=== PATIENT | male | born 1975 | race African-American/Black ===

== ENCOUNTER 2020-03-14 16:02 | Emergency (ER) | payer BC, OTHER ==
[2020-03-14 16:13] VITALS: BP 137/94; PULSE 81; TEMP 98.3; BMI 23.0
[2020-03-14] MEDS ORDERED: SODIUM CHLORIDE 0.9% 500 ML INFUS.BAG IV ONE (16:29)
[2020-03-14] MEDS ORDERED: PANTOPRAZOLE SODIUM 40 MG VIAL IVPUSH ONE (16:29)
[2020-03-14] MEDS ORDERED: ONDANSETRON 4 MG/2 ML VIAL IVPUSH ONE (16:29)
--- NOTE | 2020-03-14 17:07 | PDOC ---
History of Present Illness - General Chief Complaint: Pain Stated Complaint: ABD PAIN Time Seen by Provider: 03/14/20 16:04 History Source: Patient Exam Limitations: No Limitations - History of Present Illness Initial Comments: 03/14/20 17:04 44 year old male pmhx of HLD and iileus requiring surgery (2010) presenting to the ED complaining of nausea vomiting and diarrhea. pt states that he had a BBQ yesterday where he ate and drank heavily. Pt woke up this morning and became nauseous vomiting 5 times NBNB and had two episodes of NB diarrhea. Pt is currently complaining of nausea in the ED as well as being tired which he attributes to drinking yesterday. Pt states he also has abdominal pain specifically in the epigastrium and RUQ, non radiating described as cramping. pt states he has had similar symptoms in the past after eating sheelfish as well as drinking ETOH. Pt otherwise denies: fevers, chills, syncope, lightheadedness, dizziness, headaches, chest pain, shortness of breath, palpitations, back pain. Past History - Medical History Allergies/Adverse Reactions: Allergies Allergy/AdvReac Type Severity Reaction Status Date / Time shellfish derived Allergy Verified 03/14/20 16:12 Home Medications: Ambulatory Orders Atorvastatin Ca [Lipitor] 20 mg PO HS #30 tablet 02/24/20 Divalproex Sodium [Depakote] 500 mg PO HS 30 Days #60 tablet. 02/24/20 Famotidine [Pepcid] 40 mg PO DAILY 7 Days #10 tablet 03/14/20 Ondansetron HCl [Zofran] 4 mg PO PRN PRN 5 Days #10 tablet 03/14/20 COPD: No GI Disorders: Yes (intussusception) Hypercholesterolemia: Yes - Surgical History Abdominal Surgery: Yes (resection) - Psycho-Social/Smoking History Smoking History: Never smoked Have you smoked in the past 12 months: No If you are a former smoker, when did you quit?: 8YRS Review of Systems - Review of Systems Constitutional: No: Chills, Fever HEENTM: No: Blurred Vision Respiratory: No: Shortness of Breath Cardiac (ROS): No: Chest Pain ABD/GI: Yes: Abdominal Distended (with pain), Diarrhea, Nausea, Vomiting : No: Burning, Dysuria Musculoskeletal: No: Back Pain Integumentary: No: Change in Color, Rash Neurological: No: Headache, Numbness, Paresthesia, Tingling *Physical Exam - Vital Signs Last Vital Signs Temp Pulse Resp BP Pulse Ox 98.3 F 81 18 137/94 100 03/14/20 16:08 03/14/20 16:08 03/14/20 16:08 03/14/20 16:08 03/14/20 16:08 - Physical Exam 03/14/20 17:08 Gen: AAOx 3, no acute distress, comfortable, no signs of respiratory distress HENT: atraumatic, normocephalic with no laceration or contusion. Nasal mucosa without erythema. Oropharynx without erythema or exudates. Mucous membranes moist. EYES: PERRL, EOM intact, conjunctiva pink NECK: supple; trachea midline; no JVD, no lymphadenopathy, or thyromegaly CV: RRR no murmurs, gallops, or rubs. CHEST: CTA b/l no wheezing, rales or rhonchi ABD: +BS/ND. surgical scar over umbilicus mildly TTP in epigastrium and RUQ without murphys sign; rest of abdomen soft, no rebound, no guarding EXTREMITY: no cyanosis or erythema. 2+ dorsalis pedis, posterior tibial, and radial pulse. No pedal edema; no calf swelling or tenderness SKIN: no rash, warm and dry, no diaphoresis HEME: no purpura or ecchymosis NEURO: normal speech, CN II-XII intact, sensation intact, normal gait, no cerebellar deficits MS: 5/5 strength in all extremities, FROM intact in all extremities. ED Treatment Course - LABORATORY CBC & Chemistry Diagram: 03/14/20 17:30 03/14/20 17:30 - RADIOLOGY Radiology Studies Ordered: Category Date Time Status ABDOMEN US -LIMITED [US] Stat Ultrasound 03/14/20 16:30 Ordered Medical Decision Making - Medical Decision Making This is a 44-year-old male history of abdominal surgery secondary to ileus presenting with nausea vomiting diarrhea since this morning. Vital signs stable Plan: CBC CMP lipase to assess for infection electrolyte abnormalities liver function and pancreatitis. will administer Protonix and Zofran and normal saline for symptomatic relief will obtain abdominal ultrasound to assess for biliary etiologies. Will reassess based on results US WNL Labs show a luekocytosis to 11.9 most likely reactive to vomiting. Pt reports felling much better with meds and IVF. Repeat abdominal exam benign, no ttp Tolerating PO fluids in ED. Pt appears well and is safe and stable for discharge. Strict return precautions given and need to follow up with PCP expressed. Script for Zofran and Pepcid sent to pts pharmacy. Supportive care instructions explained and given to pt. Reasons to return emergently to ER explained and given. Importance of follow up with PMD and other specialists as indicated stressed to pt. Pt verbalized understanding of instructions. Pt to follow up with PMD in 2 days. 03/14/20 18:57 Discharge - Discharge Information Problems reviewed: Yes Clinical Impression/Diagnosis: Abdominal pain Qualifiers: Abdominal location: unspecified location Qualified Code(s): R10.9 - Unspecified abdominal pain Condition: Improved Disposition: HOME - Admission No - Additional Discharge Information Prescriptions: Famotidine [Pepcid] 40 mg PO DAILY 7 Days #10 tablet Ondansetron HCl [Zofran] 4 mg PO PRN PRN 5 Days #10 tablet PRN Reason: Nausea - Follow up/Referral - Patient Discharge Instructions Patient Printed Discharge Instructions: DI for Alcoholic Gastritis Additional Instructions: Return to the ED if abdominal pain returns or you cannot tolerate fluids. - Post Discharge Activity Work/Back to School Note: Back to Work
--- NOTE | 2020-03-14 17:09 | PDOC ---
Rapid Medical Evaluation Time Seen by Provider: 03/14/20 16:04 Medical Evaluation: Allergies Allergy/AdvReac Type Severity Reaction Status Date / Time shellfish derived Allergy Verified 02/22/20 10:42 03/14/20 16:04 I have performed a brief in-person evaluation of this patient. The patient presents with a chief complaint of:diffuse abd discomfort w/ nausea and weakness that pt awoke with this am. No change in BM, f/c. Pt went to [facility] late last night and states he ate burgers at 12 midnight and drank a lot more than usual. Denies drug use. No abd surg in past. Denies any pmhx Pertinent physical exam findings:mostly somnolent at triage, stable I have ordered the following:labs The patient will proceed to the ED for further evaluation. 03/14/20 17:21 Discharge Disposition - Diagnosis Abdominal pain Qualifiers: Abdominal location: unspecified location Qualified Code(s): R10.9 - Unspecified abdominal pain - Referrals - Patient Instructions - Post Discharge Activity
[2020-03-14 17:51] LABS: BASO % 0.4 % (0-2.0); HEMATOCRIT 45.8 % (35.4-49); HEMOGLOBIN 14.6 GM/dL (11.7-16.9); LYMPH % 5.3 % (8-40); MCH 27.5 pg (25.7-33.7); MCHC 31.9 g/dl (32.0-35.9); MEAN CELL VOLUME 86.3 fl (80-96); MEAN PLT VOLUME 10.1 fl (7.5-11.1); MONO % 1.7 % (3.8-10.2); NEUT % 92.6 % (42.8-82.8); PLATELET COUNT 195 K/MM3 (134-434); RBC 5.31 M/mm3 (4.00-5.60); RDW 14.1 % (11.9-15.9); WHITE BLOOD COUNT 11.9 K/mm3 (4.0-10.0)
[2020-03-14 18:09] LABS: PLATELET ESTIMATE ADEQUATE
[2020-03-14 18:19] LABS: ALBUMIN 4.4 g/dl (3.4-5.0); BILIRUBIN,TOTAL 0.8 mg/dL (0.2-1); BLOOD UREA NITROGEN 11.9 mg/dL (7-18); CALCIUM 9.3 mg/dL (8.5-10.1); CREATININE 0.7 mg/dL (0.55-1.3); POTASSIUM 4.2 mmol/L (3.5-5.1); TOT PROT 7.4 g/dl (6.4-8.2)
== END 2020-03-14 19:00 | disposition home or self-care (01) ==
LOC: JER 16:02
PROC: 3E033GC Introduction of Other Therapeutic Substance into Peripheral Vein, Percutaneous Approach (ICD-10-PCS; principal; 2020-03-14)
DX: R10.11 Right upper quadrant pain (principal)
CPT/HCPCS: 36415; 76705-TC; 80053; 83690; 85025; 99284-25

== ENCOUNTER 2020-05-14 13:45 | Emergency (ER) | payer BC, OTHER ==
[2020-05-14 13:55] VITALS: PULSE 80; TEMP 98.6; BMI 20.3
[2020-05-14] MEDS ORDERED: ONDANSETRON 4 MG/2 ML VIAL IVPUSH ONE (14:40)
[2020-05-14] MEDS ORDERED: morphine CARPU-JECT 4 MG/1 ML DISP.SYRIN IVPUSH ONE (14:40)
[2020-05-14] MEDS ORDERED: SODIUM CHLORIDE 1,000 ML IV STA (14:40)
[2020-05-14] MEDS ORDERED: morphine SULFATE 4 MG/ML VIAL ONE (15:00)
--- NOTE | 2020-05-14 15:15 | PDOC ---
History of Present Illness - General Chief Complaint: Pain Stated Complaint: ABD PAIN Time Seen by Provider: 05/14/20 14:11 History Source: Patient Exam Limitations: No Limitations - History of Present Illness Travel History: No Initial Comments: 05/14/20 15:22 HISTORY OF PRESENT ILLNESS: 45-year-old male past medical history of intussusception status post colectomy 2012 presents emergency department for evaluation of diffuse abdominal pain and concern for "colon cancer or something." Patient reports pain is throughout his abdomen which he rates a 7/10 and is unable to identify any aggravating or alleviating factors. Patient reports he has had decreased appetite. He denies diarrhea, rectal bleeding, dysuria, hematuria, penile discharge or testicular pain. No recent travel or sick contacts. PAST MEDICAL HISTORY: Intussusception status post colectomy SURGICAL HISTORY: Denies ALLERGIES: No known drug allergies; shellfish REVIEW OF SYSTEMS General/Constitutional: Denies fever or chills. Denies weakness, weight change. HEENT: Denies change in vision. Denies ear pain or discharge. Denies sore throat. Cardiovascular: Denies chest pain or shortness of breath. Respiratory: Denies cough, wheezing, or hemoptysis. Gastrointestinal: See HPI Genitourinary: Denies dysuria, frequency, or change in urination. Musculoskeletal: Denies joint or muscle swelling or pain. Denies neck or back pain. Skin and breasts: Denies rash or easy bruising. Neurologic: Denies headache, vertigo, loss of consciousness, or loss of sensation. Psychiatric: Denies depression or anxiety. Endocrine: Denies increased thirst. Denies abnormal weight change. Hematologic/Lymphatic: Denies anemia, easy bleeding, or history of blood clots. Allergic/Immunologic: Denies hives or skin allergy. Denies latex allergy. PHYSICAL EXAM General Appearance: Well-appearing, appropriately dressed. No apparent distress, no intoxication. Respiratory/Chest: Lungs CTAB. No shortness of breath, chest tenderness, respiratory distress, accessory muscle use. No crackles, rales, rhonchi, stridor, wheezing, dullness Cardiovascular: RRR. S1, S2. No JVD, murmur, bradycardia, tachycardia. Gastrointestinal/Abdominal: Normal bowel sounds. Abdomen soft, non-distended. No tenderness or rebound tenderness. No organomegaly, pulsatile mass, guarding, hernia, hepatomegaly, splenomegaly. Midline scar from previous abdominal surgeries noted. Musculoskeletal/Extremities: Normal inspection. FROM of all extremities, normal capillary refill. Pelvis Stable. No CVA tenderness. No tenderness to extremities, pedal edema, swelling, erythema or deformity. Integumentary: Abdominal scar from previous surgeries noted. Otherwise unremarkable. Past History - Medical History Allergies/Adverse Reactions: Allergies Allergy/AdvReac Type Severity Reaction Status Date / Time shellfish derived Allergy Verified 03/14/20 16:12 Home Medications: Ambulatory Orders Atorvastatin Ca [Lipitor] 20 mg PO HS #30 tablet 02/24/20 Divalproex Sodium [Depakote] 500 mg PO HS 30 Days #60 tablet. 02/24/20 Famotidine [Pepcid] 40 mg PO DAILY 7 Days #10 tablet 03/14/20 COPD: No GI Disorders: Yes (intussusception) Hypercholesterolemia: Yes - Surgical History Abdominal Surgery: Yes (resection) - Psycho-Social/Smoking History Smoking History: Never smoked Have you smoked in the past 12 months: No If you are a former smoker, when did you quit?: 8YRS - Substance Abuse Hx (Audit-C & DAST Scrn) How often the patient has a drink containing alcohol: Never Score: In Men: 4 or > Positive; In Women: 3 or > Positive: 0 Screen Result (Pos requires Nsg. Audit-10AR): Negative In the last yr the pt used illegal drug/Rx for NonMed reason: No Score: Yes response is considered Positive: 0 Screen Result (Positive result requires Nsg. DAST-10): Negative *Physical Exam - Vital Signs Last Vital Signs Temp Pulse Resp BP Pulse Ox 98.6 F 80 18 130/102 H 100 05/14/20 13:53 05/14/20 13:53 05/14/20 13:53 05/14/20 13:53 05/14/20 13:53 ED Treatment Course - LABORATORY CBC & Chemistry Diagram: 05/14/20 15:10 05/14/20 15:10 - RADIOLOGY Radiology Studies Ordered: Category Date Time Status ABDOMEN & PELVIS CT WITH CONTR [CT] Stat CT Scan 05/14/20 14:41 Ordered Medical Decision Making - Medical Decision Making 05/14/20 15:26 A/P: 45-year-old male with diffuse abdominal pain, nausea and vomiting worsening over 1 month Abdominal exam is unremarkable with the exception of scar to the midline abdomen from previous abdominal surgeries Patient was concerned he may have cannabis induced vomiting but has not had any cannabis ingestion over the past [address] abdomen and pelvis with IV/p.o. contrast Zofran 4 mg IV push Morphine 4 mg IV push Normal saline 1 L IV bolus Reassess 05/14/20 20:34 CT scan is read by imaging on-call: No evidence of small bowel obstruction or mass. Normal appendix is identified. 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 Lumbar spondylosis at L5-L4 with discogenic disease, endplate degenerative changes and hypertrophic changes of the facet j oints results in severe left-sided neuroforaminal stenosis. No significant right neuroforaminal or spinal canal stenosis. Patient is pending urine studies for disposition. 05/14/20 21:48 Laboratory Tests 05/14/20 05/14/20 05/14/20 15:10 15:10 20:40 WBC 18.5 H RBC 5.59 Hgb 15.6 Hct 47.8 MCV 85.5 MCH 28.0 MCHC 32.7 RDW 14.8 Plt Count 268 D MPV 9.4 Absolute Neuts (auto) 15.8 H Neutrophils % 85.3 H Lymphocytes % 8.3 D Monocytes % 6.0 D Eosinophils % 0.0 Basophils % 0.4 Nucleated RBC % 0 Sodium 139 Potassium 4.1 Chloride 102 Carbon Dioxide 26 Anion Gap 10 BUN 17.5 Creatinine 1.1 Est GFR (CKD-EPI)AfAm 94.13 Est GFR (CKD-EPI)NonAf 81.21 Random Glucose 107 H Calcium 10.4 H Total Bilirubin 1.0 AST 16 ALT 23 Alkaline Phosphatase 50 Total Protein 8.6 H Albumin 5.1 H Lipase 96 Urine Color Yellow Urine Appearance Clear Urine pH 6.5 Ur Specific [place] 1.093 H Urine Protein 1+ H Urine Glucose (UA) Negative Urine Ketones Trace H Urine Blood Negative Urine Nitrite Negative Urine Bilirubin Negative Urine Urobilinogen 0.2 Ur Leukocyte Esterase Negative Urine WBC (Auto) 6.5 Urine RBC (Auto) 16.4 Urine Casts (Auto) 2.83 U Epithel Cells (Auto) 8.1 Urine Bacteria (Auto) 1.9 Laboratory testing combined with imaging likely with gastroenteritis. Will discharge the patient home to follow-up with his primary doctor for continued evaluation of his symptoms. I discussed the physical exam findings, ancillary test results and final diagnoses with the patient. I answered all of the patient's questions. The patient was satisfied with the care received and felt comfortable with the discharge plan and treatment plan. The patient will call their primary care physician within 24 hours to arrange follow-up and will return to the Emergency Department with any new, persistent or worsening symptoms. Portions of this note have been documented using voice recognition software. As a result, errors may occur in the pen and pencil repairer process. Effort has been made to correct all grammatical and pen and pencil repairer error, but some may have been missed which may produce sporadic inaccurate pen and pencil repairer or nonsensical phrases. Discharge - Discharge Information Problems reviewed: Yes Clinical Impression/Diagnosis: Abdominal pain in male Condition: Fair Disposition: HOME - Admission No - Follow up/Referral - Patient Discharge Instructions Additional Instructions: Rest, drink lots of fluids: Teas, water, soups Stella liv, carbonated beverages for the bubbles May try peppermint teas Avoid heavy , spicy or fatty foods until symptoms have resolved Avoid contact with others until fevers and symptoms resolved Lots of handwashing and good hygiene Continue [id number] medications for symptomatic relief Tylenol or Motrin for fever and pain Followup with private physician in one to 2 days as needed Return to emergency department for worsened symptoms, fevers, dehydration - Post Discharge Activity
[2020-05-14 15:46] LABS: BASO % 0.4 % (0-2.0); HEMATOCRIT 47.8 % (35.4-49); HEMOGLOBIN 15.6 GM/dL (11.7-16.9); LYMPH % 8.3 % (8-40); MCHC 32.7 g/dl (32.0-35.9); MEAN CELL VOLUME 85.5 fl (80-96); MEAN PLT VOLUME 9.4 fl (7.5-11.1); NEUT % 85.3 % (42.8-82.8); PLATELET COUNT 268 K/MM3 (134-434); RBC 5.59 M/mm3 (4.00-5.60); RDW 14.8 % (11.9-15.9); WHITE BLOOD COUNT 18.5 K/mm3 (4.0-10.0)
[2020-05-14 16:01] LABS: ALBUMIN 5.1 g/dl (3.4-5.0); BLOOD UREA NITROGEN 17.5 mg/dL (7-18); CALCIUM 10.4 mg/dL (8.5-10.1); CREATININE 1.1 mg/dL (0.55-1.3); POTASSIUM 4.1 mmol/L (3.5-5.1); TOT PROT 8.6 g/dl (6.4-8.2)
[2020-05-14 21:45] LABS: PH,URINE 6.5 (5.0-8.0); URINE APPEARANCE CLEAR; URINE BILIRUBIN NEGATIVE (NEGATIVE); URINE COLOR YELLOW; URINE GLUCOSE (UA) NEGATIVE (NEGATIVE); URINE KETONE TRACE (NEGATIVE)
[2020-05-14 21:46] LABS: EPI CELLS 8.1 /uL (0-25.1); HYALINE CASTS 2.83 /uL (0-3.1); URINE BACTERIA 1.9 /uL (0-1359); URINE LEUK ESTERASE NEGATIVE (NEGATIVE); URINE NITRITE NEGATIVE (NEGATIVE); URINE PROTEIN 1+ (NEGATIVE); URINE RBC 16.4 /uL (0-23.9); URINE UROBILINOGEN 0.2 mg/dL (0.2-1.0); URINE WBC 6.5 /uL (0-25.8)
[2020-05-14 22:17] VITALS: BP 142/86
== END 2020-05-14 22:18 | disposition home or self-care (01) ==
LOC: JER 13:45
PROC: 3E033NZ Introduction of Analgesics, Hypnotics, Sedatives into Peripheral Vein, Percutaneous Approach (ICD-10-PCS; principal; 2020-05-14)
PROC: 3E033GC Introduction of Other Therapeutic Substance into Peripheral Vein, Percutaneous Approach (ICD-10-PCS; 2020-05-14)
PROC: 3E0337Z Introduction of Electrolytic and Water Balance Substance into Peripheral Vein, Percutaneous Approach (ICD-10-PCS; 2020-05-14)
DX: R10.9 Unspecified abdominal pain (principal)
CPT/HCPCS: 36415; 74177-TC; 80053; 81003; 83690; 85025; 99285-25; Q9967

== ENCOUNTER 2020-05-19 22:46 | Emergency (ER) | payer OTHER ==
[2020-05-19 22:57] VITALS: BMI 20.3
[2020-05-19] MEDS ORDERED: ACETAMINOPHEN 1000 MG/100 ML VIAL (NON FORMULARY) IVPB ONE (23:38)
[2020-05-19] MEDS ORDERED: LACTATED RINGERS SOLUTION 1000 ML INFUS.BAG IV ONE (23:40)
[2020-05-19] MEDS ORDERED: ACETAMINOPHEN INJECTION 100 ML IVPB ONE (23:58)
[2020-05-20] MEDS ORDERED: MAGNESIUM SULF 50% (8.12 MEQ/2 ML-1 GM VIAL) IVPB ONE (00:27)
[2020-05-20] MEDS ORDERED: METOCLOPRAMIDE HCL INJECTION 10 MG/2 ML VIAL IVPB ONE (00:27)
--- NOTE | 2020-05-20 00:38 | PDOC ---
History of Present Illness - General Chief Complaint: Nausea/Vomiting Stated Complaint: NAUSEA/VOMITING Time Seen by Provider: 05/19/20 23:04 - History of Present Illness Initial Comments: HPI 45 yo M PMH of intussusception s/p ex lap + bowel resection (2010) and HLD presenting with mild to moderate generalized abdominal pain x 1-2 weeks - pain is intermittent with increasingly frequent episodes; described as cramping and feeling "bloated discomfort - like gas is stuck in my stomach." Worse with PO intake; improved with no PO intake and hot baths. Reports associated nausea and nb nb emesis (nearly every time he attempts to eat or drink something), decreased appetite, lightheadedness, and generalized weakness over the past week. Pt is passing flatus but has not had a BM in a week (reports no sensation or urge to move his bowels; feels like there is nothing to defecate as he has not been able to tolerate anything by mouth for the last week). Of note, pt has had similar episodes of these symptoms over the last 3 months that seem to last several days and resolve before occurring again with days to weeks. Pt reports l osing approximately 40 pounds because of his symptoms. Denies fevers, chills, diarrhea, urinary changes, groin pain, cough, SOB, sick contacts, recent travel, changes in sensation/strength. Pt was here on 05/[address] A/P with contrast was done - imaging police officer crime prevention read did not show significant findings and pt was discharged home. Read by radiologists the next morning yielded dilated distal portion of duodenum + proximal jejunal loop w/o gross wall thickening; possible ileus, cannot r/o enteritis. PMHX: as in HPI PSHX: as in HPI Meds: Ambulatory Orders Atorvastatin Ca [Lipitor] 20 mg PO HS #30 tablet 02/24/20 Divalproex Sodium [Depakote] 500 mg PO HS 30 Days #60 tablet. 02/24/20 Famotidine [Pepcid] 40 mg PO DAILY 7 Days #10 tablet 03/14/20 - pt reports he is no longer taking depakote at home as it gave him insomnia and made him "hyper" Allergies: as per chart Tob: denies Etoh: denies Rec drugs: hx of marijuana use but has not used in the last several weeks in an attempt to stop the nausea/vomiting PCP: none ROS GENERAL/CONSTITUTIONAL: No fever or chills. + generalized weakness + lightheaded + decreased appetite HEAD, EYES, EARS, NOSE AND THROAT: No change in vision. No ear pain or discharge. No sore throat. CARDIOVASCULAR: No chest pain or shortness of breath RESPIRATORY: No cough, wheezing, or hemoptysis. GASTROINTESTINAL: No diarrhea or constipation. + nausea +nb nb emesis + generalized abdominal pain GENITOURINARY: No dysuria, frequency, or change in urination. MUSCULOSKELETAL: No joint or muscle swelling or pain. No neck or back pain. SKIN: No rash NEUROLOGIC: No headache, vertigo, loss of consciousness, or change in strength/sensation. ENDOCRINE: No increased thirst. No abnormal weight change HEMATOLOGIC/LYMPHATIC: No anemia, easy bleeding, or history of blood clots. ALLERGIC/IMMUNOLOGIC: No hives or skin allergy. PE GENERAL: Awake, alert, and fully oriented, in no acute distress HEAD: No signs of trauma, normocephalic, atraumatic EYES: PERRLA, EOMI, sclera anicteric, conjunctiva clear ENT: Auricles normal inspection, hearing grossly normal, nares patent, oropharynx clear without exudates. Dry mucosa NECK: Normal ROM, supple, no lymphadenopathy LUNGS: No distress, speaks full sentences, clear to auscultation bilaterally HEART: Regular rate and rhythm, normal S1 and S2, no murmurs, rubs or gallops, peripheral pulses normal and equal bilaterally. ABDOMEN: Soft, non distended, diffusely tender with no rebound or guarding, normoactive bowel sounds. EXTREMITIES : Normal inspection, Normal range of motion, no edema. No clubbing or cyanosis. NEUROLOGICAL: Cranial nerves II through XII grossly intact. Normal speech, no focal sensorimotor deficits SKIN: Warm, Dry, normal turgor, no rashes or lesions noted Past History - Medical History Allergies/Adverse Reactions: Allergies Allergy/AdvReac Type Severity Reaction Status Date / Time shellfish derived Allergy Verified 03/14/20 16:12 Home Medications: Ambulatory Orders Atorvastatin Ca [Lipitor] 20 mg PO HS #30 tablet 02/24/20 Docusate Sodium [Docusate 100 mg] 100 mg PO BID #30 cap 05/20/20 Pyridoxine HCl (B-6) [Vitamin B6] 25 mg PO TID PRN 14 Days #30 tablet 05/20/20 Trimethobenzamide HCl [Tigan] 300 mg PO TID PRN 14 Days #30 capsule 05/20/20 COPD: No GI Disorders: Yes (intussusception) Hypercholesterolemia: Yes - Surgical History Abdominal Surgery: Yes (resection) - Psycho-Social/Smoking History Smoking History: Former smoker Have you smoked in the past 12 months: No If you are a former smoker, when did you quit?: 8YRS Information on smoking cessation initiated: No - Substance Abuse Hx (Audit-C & DAST Scrn) How often the patient has a drink containing alcohol: Never Score: In Men: 4 or > Positive; In Women: 3 or > Positive: 0 Screen Result (Pos requires Nsg. Audit-10AR): Negative *Physical Exam - Vital Signs Last Vital Signs Temp Pulse Resp BP Pulse Ox 97.5 F L 116 H 20 120/100 98 05/19/20 22:54 05/19/20 22:54 05/19/20 22:54 05/19/20 22:54 05/19/20 22:54 ED Treatment Course - LABORATORY CBC & Chemistry Diagram: 05/20/20 00:15 05/20/20 00:15 - Medications Given in the ED: ED Medications Discontinued Medications Generic Name Dose Route Start Last Admin Trade Name Garyq PRN Reason Stop Dose Admin Acetaminophen 1,000 mg 05/19/20 23:38 05/20/20 00:23 Ofirmev Injection - IVPB 05/19/20 23:39 1,000 mg ONCE ONE Administration Medical Decision Making - Medical Decision Making MDM 45 yo M PMH of intussusception s/p ex lap + bowel resection (2010) and HLD presenting with intermittent cramping generalized abdominal pain x 1-2 weeks - pain with associated nausea and nb nb emesis (nearly every time he attempts to eat or drink something), decreased appetite, lightheadedness, and generalized weakness over the past week. DDX including but not limited to: ileus, SBO, gastroenteritis, pancreatitis, volvulus, pancreatitis, appendicitis, bowel ischemia W/U: - CBC, CMP, lactic acid, lipase, Mg - CT ab/pelvis with po and iv contrast to eval for worsening pathology or development of SBO - EKG with NSR 84 bpm, prolonged QTc 602, rightward axis TX: - IV tylenol - IVF hydration with LR - IV reglan for nausea - Mg sulfate 05/20/20 00:58 WBC 11.0 - downtrending from 18.5 on 05/14 Na 133, K 3.3 T Bili 1.6, LFTs nl Mg 2.5 will give KCl will get RUQ US 05/20/20 01:21 RUQ US read as per Imaging secondary connector armature: Gallbladder sludge without secondary findings of cholecystitis. 05/20/20 02:55 CT Ab/Pel read as per Imaging secondary connector armature: No evidence of acute pathology 05/20/20 03:17 Pt offered enema for constipation; refused enema in the ER. Will get repeat EKG. Plan to discharge with GI and cardiology follow up if tolerating PO. 05/20/20 03:52 Repeat EKG with QTc interval for 460. Pt tolerating PO now. Will plan to discharge with GI and cardiology follow up. 05/20/20 06:20 Patient stable for discharge. Informed of all lab and imaging results. Given follow up instructions and strict return precautions. Patient expressed understanding and agree to plan. 05/20/20 06:39 Discharge - Discharge Information Problems reviewed: Yes Clinical Impression/Diagnosis: Prolonged QT interval, Abdominal pain, Vomiting, Constipation Condition: Improved Disposition: HOME - Admission No - Additional Discharge Information Prescriptions: Docusate Sodium [Docusate 100 mg] 100 mg PO BID #30 cap Trimethobenzamide HCl [Tigan] 300 mg PO TID PRN 14 Days #30 capsule PRN Reason: Nausea Pyridoxine HCl (B-6) [Vitamin B6] 25 mg PO TID PRN 14 Days #30 tablet PRN Reason: Nausea - Follow up/Referral Referrals: [facility] [place] [facility] [place] [Provider Group] Joni Pulido MD [Staff Physician] - Esteban Dubon DO [Staff Physician] - Jacob Jones MD [Staff Physician] - Morgan Figueroa MD [Staff Physician] - Netta Mcdermott DO [Staff Physician] - Adam Leonardo MD [Staff Physician] - Korey Bella MD [Staff Physician] - Davonte Chavez MD [Staff Physician] - - Patient Discharge Instructions Patient Printed Discharge Instructions: DI for Nausea -- Adult, DI for Vomiting -- Adult Additional Instructions: You were seen in the ED for complaints of generalized abdominal pain with nausea and vomiting as well as constipation/ In the ED you were evaluated with labs, ultrasound of the abdomen, and CT scan of the abdomen with contrast/ Your results were: Sodium level and Potassium level were slightly low. - you were given IV fluids and potassium to replenish these levels Total Bilirubin level was elevated to 1.6 - you should follow up regarding this result with a wood tool maker Ultrasound of the abdomen showed bile sludge but no concern for gallbladder disease. CT scan of the abdomen and pelvis showed no concerning findings. EKG showed a prolong QTc interval. You were treated with IV tylenol, IV reglan (anti-nausea medication), IV fluids, and Potassium Chloride. There does not appear to be an acute need for immediate hospitalization. You are advised to follow up with your Primary Care Physician within 1 week. You were given a referral to several wood tool maker and certified histologic technician. Please follow up with a GI doctor within 1 week and certified histologic technician within 1 week. You were given a prescription for docusate (for constipation, please stop taking if you are having frequent loose stools), vitamin b6 (as needed for nausea) and tigan (as needed for nausea). For your constipation, we recommend you increase your fiber and can drink prune juice as well. Return to the ED immediately if you experience worsening and persistent abdominal pain, worsening vomiting and inability to tolerate anything by mouth, inability to defecate and pass gas, or the development of fevers. - Post Discharge Activity
[2020-05-20 00:39] LABS: BASO % 0.6 % (0-2.0); EOS % 0.2 % (0-4.5); HEMATOCRIT 49.3 % (35.4-49); HEMOGLOBIN 16.8 GM/dL (11.7-16.9); LYMPH % 24.4 % (8-40); MCH 28.6 pg (25.7-33.7); MCHC 34.1 g/dl (32.0-35.9); MEAN CELL VOLUME 83.8 fl (80-96); MEAN PLT VOLUME 9.8 fl (7.5-11.1); MONO % 7.5 % (3.8-10.2); NEUT % 67.3 % (42.8-82.8); PLATELET COUNT 268 K/MM3 (134-434); RBC 5.89 M/mm3 (4.00-5.60); RDW 13.8 % (11.9-15.9)
[2020-05-20 00:51] LABS: INR 1.08 (0.83-1.09); PROTHROMBIN TIME (PATIENT) 12.8 SEC (9.7-13.0)
[2020-05-20 00:54] LABS: ACTIVATED PTT 28.4 SECONDS (25.2-36.5)
[2020-05-20 01:00] LABS: ALBUMIN 4.6 g/dl (3.4-5.0); BILIRUBIN,TOTAL 1.6 mg/dL (0.2-1); BLOOD UREA NITROGEN 13.8 mg/dL (7-18); CALCIUM 9.7 mg/dL (8.5-10.1); MAGNESIUM 2.5 mg/dL (1.8-2.4); POTASSIUM 3.3 mmol/L (3.5-5.1); TOT PROT 7.8 g/dl (6.4-8.2)
[2020-05-20] MEDS ORDERED: POTASSIUM CHLORIDE ORAL LIQUID 20 MEQ/15 ML PO ONE (01:12)
--- NOTE | 2020-05-20 01:17 | PDOC ---
Attending Attestation - Resident Resident Name: Marko Hammond - ED Attending Attestation I have performed the following: I have examined & evaluated the patient, The case was reviewed & discussed with the resident, I agree w/resident's findings & plan, Exceptions are as noted - HPI HPI: 05/20/20 07:19 See resident HPI - Physicial Exam PE: 05/20/20 07:20 Agree with documented exam - Medical Decision Making 05/20/20 07:20 45M p/w n/v constipation for a repeat visit within a week has risk for obstruction, consider appy, judy, pancreatitis, less likely enteritis, colitis f/u labs, will repeat imaging, ekg anti-emetic, ivf dispo per clinical course Discharge - Discharge Information Problems reviewed: Yes Clinical Impression/Diagnosis: Prolonged QT interval, Abdominal pain, Vomiting, Constipation Condition: Improved Disposition: HOME - Additional Discharge Information Prescriptions: Docusate Sodium [Docusate 100 mg] 100 mg PO BID #30 cap Trimethobenzamide HCl [Tigan] 300 mg PO TID PRN 14 Days #30 capsule PRN Reason: Nausea Pyridoxine HCl (B-6) [Vitamin B6] 25 mg PO TID PRN 14 Days #30 tablet PRN Reason: Nausea - Follow up/Referral Referrals: [facility] [place] [facility] [place] [Provider Group] Joni Pulido MD [Staff Physician] - Esteban Dubon DO [Staff Physician] - Jacob Jones MD [Staff Physician] - Morgan Figueroa MD [Staff Physician] - Netta Mcdermott DO [Staff Physician] - Adam Leonardo MD [Staff Physician] - Davonte Chavez MD [Staff Physician] - Korey Bella MD [Staff Physician] - - Patient Discharge Instructions Patient Printed Discharge Instructions: DI for Nausea -- Adult, DI for Vomiting -- Adult Additional Instructions: You were seen in the ED for complaints of generalized abdominal pain with nausea and vomiting as well as constipation/ In the ED you were evaluated with labs, ultrasound of the abdomen, and CT scan of the abdomen with contrast/ Your results were: Sodium level and Potassium level were slightly low. - you were given IV fluids and potassium to replenish these levels Total Bilirubin level was elevated to 1.6 - you should follow up regarding this result with a hygiene assistant Ultrasound of the abdomen showed bile sludge but no concern for gallbladder disease. CT scan of the abdomen and pelvis showed no concerning findings. EKG showed a prolong QTc interval. You were treated with IV tylenol, IV reglan (anti-nausea medication), IV fluids, and Potassium Chloride. There does not appear to be an acute need for immediate hospitalization. You are advised to follow up with your Primary Care Physician within 1 week. You were given a referral to several hygiene assistant and beef cattle specialist. Please follow up with a GI doctor within 1 week and beef cattle specialist within 1 week. You were given a prescription for docusate (for constipation, please stop taking if you are having frequent loose stools), vitamin b6 (as needed for nausea) and tigan (as needed for nausea). For your constipation, we recommend you increase your fiber and can drink prune juice as well. Return to the ED immediately if you experience worsening and persistent abdominal pain, worsening vomiting and inability to tolerate anything by mouth, inability to defecate and pass gas, or the development of fevers. - Post Discharge Activity
[2020-05-20] MEDS ORDERED: METOCLOPRAMIDE HCL INJECTION 10 MG/2 ML VIAL ONE (01:21)
[2020-05-20] MEDS ORDERED: MAGNESIUM SULF 50% (8.12 MEQ/2 ML-1 GM VIAL) ONE (01:21)
[2020-05-20] MEDS ORDERED: POTASSIUM CHLORIDE ORAL LIQUID 20 MEQ/15 ML ONE (01:24)
[2020-05-20] MEDS ORDERED: POTASSIUM CHLORIDE TABS 10 MEQ TABLET.ER (FP) PO ONE (02:23)
[2020-05-20] MEDS ORDERED: POTASSIUM CHLORIDE TABS 20 MEQ TABLET.ER (FP) PO ONE (02:45)
[2020-05-20 06:24] VITALS: BP 122/92; PULSE 67; TEMP 98.1
--- NOTE | 2020-05-20 09:06 | EKG ---
Test Reason : Blood Pressure : / mmHG Vent. Rate : 065 BPM Atrial Rate : 065 BPM P-R Int : 132 ms QRS Dur : 082 ms QT Int : 444 ms P-R-T Axes : 073 090 048 degrees QTc Int : 461 ms NORMAL SINUS RHYTHM POSSIBLE LEFT ATRIAL ENLARGEMENT RIGHTWARD AXIS WHEN COMPARED WITH ECG OF 20-MAY-2020 00:24, NONSPECIFIC T WAVE ABNORMALITY NOW EVIDENT IN INFERIOR LEADS QT HAS SHORTENED Confirmed by MARIALUISA PENA MD ([id number]) on 05/20/2020 9:05:35 AM Referred By: Confirmed By:MARIALUISA PENA MD
--- NOTE | 2020-05-20 09:07 | EKG ---
Test Reason : Blood Pressure : / mmHG Vent. Rate : 084 BPM Atrial Rate : 084 BPM P-R Int : 130 ms QRS Dur : 078 ms QT Int : 510 ms P-R-T Axes : 082 094 074 degrees QTc Int : 602 ms NORMAL SINUS RHYTHM BIATRIAL ENLARGEMENT RIGHTWARD AXIS PULMONARY DISEASE PATTERN NONSPECIFIC ST ABNORMALITY PROLONGED QT ABNORMAL ECG WHEN COMPARED WITH ECG OF 24-FEB-2020 14:50, NONSPECIFIC T WAVE ABNORMALITY NO LONGER EVIDENT IN INFERIOR LEADS QT HAS LENGTHENED Confirmed by MARIALUISA PENA MD ([id number]) on 05/20/2020 9:07:26 AM Referred By: Confirmed By:MARIALUISA PENA MD
== END 2020-05-20 07:10 | disposition home or self-care (01) ==
LOC: JER 22:46
PROC: 3E0333Z Introduction of Anti-inflammatory into Peripheral Vein, Percutaneous Approach (ICD-10-PCS; principal; 2020-05-19)
PROC: 3E033GC Introduction of Other Therapeutic Substance into Peripheral Vein, Percutaneous Approach (ICD-10-PCS; 2020-05-19)
DX: I45.81 Long QT syndrome (principal); R10.9 Unspecified abdominal pain; R11.11 Vomiting without nausea
CPT/HCPCS: 36415; 74177-TC; 76705-TC; 80053; 83605; 83690; 83735; 85025; 85610; 85730; 86850; 86900; 86901; 93005; 93010; 99285-25; J0131

== ENCOUNTER 2021-02-01 12:39 | Emergency (ER) | payer OTHER ==
[2021-02-01 13:13] VITALS: TEMP 98.6; BMI 22.4
[2021-02-01] MEDS ORDERED: morphine CARPU-JECT 4 MG/1 ML DISP.SYRIN IVPUSH ONE (14:01)
[2021-02-01] MEDS ORDERED: SODIUM CHLORIDE 1,000 ML IV STA (14:01)
[2021-02-01] MEDS ORDERED: ONDANSETRON 4 MG/2 ML VIAL IVPUSH ONE ×2 (14:02→17:17)
[2021-02-01] MEDS ORDERED: morphine SULFATE 4 MG/ML VIAL ONE (14:13)
[2021-02-01] MEDS ORDERED: ONDANSETRON 4 MG/2 ML VIAL ONE ×2 (14:13→17:19)
[2021-02-01 14:45] LABS: BASO % 0.7 % (0-2.0); HEMATOCRIT 47.2 % (35.4-49); HEMOGLOBIN 15.6 GM/dL (11.7-16.9); LYMPH % 9.2 % (8-40); MCH 28.4 pg (25.7-33.7); MEAN CELL VOLUME 86.1 fl (80-96); MEAN PLT VOLUME 9.4 fl (7.5-11.1); MONO % 5.6 % (3.8-10.2); NEUT % 84.5 % (42.8-82.8); PLATELET COUNT 274 K/MM3 (134-434); RBC 5.48 M/mm3 (4.00-5.60); RDW 13.6 % (11.9-15.9); WHITE BLOOD COUNT 18.8 K/mm3 (4.0-10.0)
[2021-02-01 15:04] LABS: CALCIUM 9.6 mg/dL (8.5-10.1)
[2021-02-01 15:05] LABS: ALBUMIN 4.9 g/dl (3.4-5.0); BLOOD UREA NITROGEN 14.8 mg/dL (7-18)
[2021-02-01 15:08] LABS: CREATININE 1.1 mg/dL (0.55-1.3); TOT PROT 8.2 g/dl (6.4-8.2)
[2021-02-01 15:11] LABS: BILIRUBIN,TOTAL 2.8 mg/dL (0.2-1)
[2021-02-01] MEDS ORDERED: POTASSIUM CHLORIDE ORAL LIQUID 20 MEQ/15 ML PO ONE (15:21)
[2021-02-01] MEDS ORDERED: POTASSIUM CHLORIDE ORAL LIQUID 20 MEQ/15 ML ONE (15:30)
[2021-02-01] MEDS ORDERED: POTASSIUM CHLORIDE TABS 20 MEQ TABLET.ER (FP) PO ONE ×2 (15:36→15:38)
[2021-02-01] MEDS ORDERED: SODIUM CHLORIDE 500 ML IV STA (17:18)
[2021-02-01] MEDS ORDERED: FAMOTIDINE 20 MG/50 ML IVPB 20 MG/50 ML MG IVPB ONE ×2 (17:25→17:28)
[2021-02-01 18:22] VITALS: BP 151/88; PULSE 62
== END 2021-02-01 18:36 | disposition home or self-care (01) ==
LOC: JER 12:39
PROC: 3E033GC Introduction of Other Therapeutic Substance into Peripheral Vein, Percutaneous Approach (ICD-10-PCS; principal; 2021-02-01)
PROC: 3E033NZ Introduction of Analgesics, Hypnotics, Sedatives into Peripheral Vein, Percutaneous Approach (ICD-10-PCS; 2021-02-01)
PROC: 3E033GC Introduction of Other Therapeutic Substance into Peripheral Vein, Percutaneous Approach (ICD-10-PCS; 2021-02-01)
PROC: 3E033GC Introduction of Other Therapeutic Substance into Peripheral Vein, Percutaneous Approach (ICD-10-PCS; 2021-02-01)
PROC: 3E0337Z Introduction of Electrolytic and Water Balance Substance into Peripheral Vein, Percutaneous Approach (ICD-10-PCS; 2021-02-01)
PROC: 3E0337Z Introduction of Electrolytic and Water Balance Substance into Peripheral Vein, Percutaneous Approach (ICD-10-PCS; 2021-02-01)
DX: R11.2 Nausea with vomiting, unspecified (principal); R10.84 Generalized abdominal pain
CPT/HCPCS: 36415; 74177-TC; 80053; 83690; 85025; 99285-25; Q9967

== ENCOUNTER 2021-02-09 14:14 | Emergency (ER) | payer OTHER ==
[2021-02-09 14:30] VITALS: TEMP 98.2; BMI 21.7
[2021-02-09] MEDS ORDERED: morphine CARPU-JECT 4 MG/1 ML DISP.SYRIN IVPUSH ONE (15:05)
[2021-02-09] MEDS ORDERED: SODIUM CHLORIDE 1,000 ML IV STA (15:05)
[2021-02-09] MEDS ORDERED: ONDANSETRON 4 MG/2 ML VIAL IVPUSH ONE ×2 (15:05→17:29)
[2021-02-09] MEDS ORDERED: morphine SULFATE 4 MG/ML VIAL ONE ×2 (15:28→17:38)
[2021-02-09] MEDS ORDERED: ONDANSETRON 4 MG/2 ML VIAL ONE ×2 (15:28→17:39)
[2021-02-09 16:26] LABS: BASO % 0.3 % (0-2.0); HEMATOCRIT 51.6 % (35.4-49); HEMOGLOBIN 17.6 GM/dL (11.7-16.9); LYMPH % 13.7 % (8-40); MCH 28.6 pg (25.7-33.7); MCHC 34.1 g/dl (32.0-35.9); MEAN CELL VOLUME 83.9 fl (80-96); MEAN PLT VOLUME 9.7 fl (7.5-11.1); MONO % 6.6 % (3.8-10.2); NEUT % 79.4 % (42.8-82.8); PLATELET COUNT 345 K/MM3 (134-434); RBC 6.15 M/mm3 (4.00-5.60); RDW 12.7 % (11.9-15.9); WHITE BLOOD COUNT 11.4 K/mm3 (4.0-10.0)
[2021-02-09 16:34] LABS: PH,URINE 5.5 (5.0-8.0); URINE APPEARANCE CLEAR; URINE BILIRUBIN NEGATIVE (NEGATIVE); URINE COLOR YELLOW; URINE GLUCOSE (UA) NEGATIVE (NEGATIVE); URINE KETONE 1+ (NEGATIVE); URINE LEUK ESTERASE NEGATIVE (NEGATIVE); URINE NITRITE NEGATIVE (NEGATIVE); URINE PROTEIN TRACE (NEGATIVE); URINE UROBILINOGEN 0.2 mg/dL (0.2-1.0)
[2021-02-09 16:43] LABS: CHLORIDE 86 mmol/L (98-107); SODIUM 130 mmol/L (136-145)
[2021-02-09 16:45] LABS: CALCIUM 10.4 mg/dL (8.5-10.1)
[2021-02-09 16:46] LABS: ANION GAP 14 MMOL/L (8-16); BLOOD UREA NITROGEN 16.9 mg/dL (7-18); CO2 30 mmol/L (21-32); GLUCOSE,RANDOM 83 mg/dL (74-106); LIPASE 160 U/L (73-393)
[2021-02-09 16:49] LABS: CREATININE 1.4 mg/dL (0.55-1.3); SGOT/AST 34 U/L (15-37); SGPT/ALT 31 U/L (13-61)
[2021-02-09 16:50] LABS: BILIRUBIN,TOTAL 2.1 mg/dL (0.2-1); TOT PROT 8.3 g/dl (6.4-8.2)
[2021-02-09 16:52] LABS: ALK PHOS 64 U/L (45-117)
[2021-02-09] MEDS ORDERED: POTASSIUM CHLORIDE TABS 20 MEQ TABLET.ER (FP) PO ONE ×2 (16:58→17:17)
[2021-02-09] MEDS: KCL 10 MEQ IVPB 10 MEQ/100 ML INFUS.BAG IVPB SCH ×2 (17:15→18:33)
[2021-02-09] MEDS ORDERED: KCL 10 MEQ IVPB 10 MEQ/100 ML INFUS.BAG IVPB ONE ×2 (17:17→18:32)
[2021-02-09] MEDS ORDERED: morphine CARPU-JECT 10 MG/1 ML DISP.SYRIN IVPUSH ONE (17:29)
[2021-02-09] MEDS ORDERED: MORPHINE SULFATE 2 MG/ML VIAL ONE (17:39)
[2021-02-09] MEDS ORDERED: SODIUM CHLORIDE 0.9%/KCL 20 MEQ/1,000 ML INFUS.BAG IV SCH (18:30)
[2021-02-09 20:51] LABS: CALCIUM 9.1 mg/dL (8.5-10.1)
[2021-02-09 20:53] LABS: BLOOD UREA NITROGEN 15.4 mg/dL (7-18)
[2021-02-09 20:56] LABS: CREATININE 1.3 mg/dL (0.55-1.3)
[2021-02-09 21:26] VITALS: BP 135/89; PULSE 83
== END 2021-02-09 21:25 | disposition home or self-care (01) ==
LOC: JER 14:14
PROC: 3E033NZ Introduction of Analgesics, Hypnotics, Sedatives into Peripheral Vein, Percutaneous Approach (ICD-10-PCS; principal; 2021-02-09)
PROC: 3E033GC Introduction of Other Therapeutic Substance into Peripheral Vein, Percutaneous Approach (ICD-10-PCS; 2021-02-09)
PROC: 3E0337Z Introduction of Electrolytic and Water Balance Substance into Peripheral Vein, Percutaneous Approach (ICD-10-PCS; 2021-02-09)
DX: R10.9 Unspecified abdominal pain (principal); E87.6 Hypokalemia
CPT/HCPCS: 36415; 76705-TC; 80048; 80053; 81003; 82550; 83690; 84484; 85025; 86850; 86900; 86901; 87086; 93005; 93010; 99285-25

== ENCOUNTER 2022-09-05 11:46 | Emergency (ER) | payer OTHER ==
[2022-09-05 12:38] VITALS: BP 128/75; PULSE 77; RESP 18; TEMP 98.7; BMI 23.0
[2022-09-05] MEDS ORDERED: KETOROLAC TROMETHAMINE 30 MG/1 ML VIAL IM ONE (13:43)
[2022-09-05] MEDS ORDERED: KETOROLAC TROMETHAMINE 30 MG/1 ML VIAL ONE (13:48)
== END 2022-09-05 13:52 | disposition home or self-care (01) ==
LOC: JERFT 11:46
PROC: 3E0233Z Introduction of Anti-inflammatory into Muscle, Percutaneous Approach (ICD-10-PCS; principal; 2022-09-05)
DX: M54.12 Radiculopathy, cervical region (principal)
CPT/HCPCS: 99284-25

== ENCOUNTER 2022-11-14 12:11 | Emergency (ER) | payer OTHER ==
[2022-11-14 12:24] VITALS: BP 147/79; PULSE 104; RESP 18; TEMP 98; BMI 23.0
[2022-11-14] MEDS ORDERED: ONDANSETRON 4 MG/2 ML VIAL IVPUSH ONE (13:16)
[2022-11-14] MEDS ORDERED: SODIUM CHLORIDE 0.9% 500 ML INFUS.BAG IV ONE (13:16)
[2022-11-14] MEDS ORDERED: ONDANSETRON 4 MG/2 ML VIAL ONE (13:43)
[2022-11-14 14:29] LABS: BASO % 0.6 % (0-2.0); EOS % 0.2 % (0-4.5); HEMATOCRIT 53.7 % (35.4-49); HEMOGLOBIN 17.6 GM/dL (11.7-16.9); LYMPH % 16.1 % (8-40); MCH 27.2 pg (25.7-33.7); MCHC 32.7 g/dl (32.0-35.9); MEAN CELL VOLUME 83.1 fl (80-96); MEAN PLT VOLUME 9.2 fl (7.5-11.1); MONO % 7.6 % (3.8-10.2); NEUT % 75.5 % (42.8-82.8); PLATELET COUNT 300 10^3/uL (134-434); RBC 6.46 M/mm3 (4.00-5.60); RDW 13.5 % (11.9-15.9); WHITE BLOOD COUNT 15.5 K/mm3 (4.0-10.0)
[2022-11-14 14:50] LABS: ALBUMIN 4.7 g/dl (3.4-5.0); CALCIUM 10.1 mg/dL (8.5-10.1)
[2022-11-14 14:51] LABS: BLOOD UREA NITROGEN 21.2 mg/dL (7-18)
[2022-11-14 14:53] LABS: CREATININE 1.1 mg/dL (0.55-1.3)
[2022-11-14 14:55] LABS: BILIRUBIN,TOTAL 1.9 mg/dL (0.2-1)
[2022-11-14] MEDS ORDERED: POTASSIUM CHLORIDE TABS 20 MEQ TABLET.ER (FP) PO ONE ×2 (14:59→15:15)
[2022-11-14] MEDS ORDERED: POTASSIUM CHLORIDE ORAL LIQUID 20 MEQ/15 ML PO ONE (14:59)
[2022-11-14] MEDS ORDERED: POTASSIUM CHLORIDE ORAL LIQUID 20 MEQ/15 ML ONE (15:15)
== END 2022-11-14 15:49 | disposition home or self-care (01) ==
LOC: JER 12:11
PROC: 3E033GC Introduction of Other Therapeutic Substance into Peripheral Vein, Percutaneous Approach (ICD-10-PCS; principal; 2022-11-14)
DX: R11.2 Nausea with vomiting, unspecified (principal); R19.7 Diarrhea, unspecified
CPT/HCPCS: 36415; 80053; 83690; 85025; 99284-25

== ENCOUNTER 2022-12-12 08:48 | Emergency (ER) | payer OTHER ==
[2022-12-12 09:01] VITALS: BP 130/80; PULSE 106; RESP 18; TEMP 97.5; BMI 26.8
[2022-12-12] MEDS ORDERED: FAMOTIDINE 20 MG/50 ML IVPB 20 MG/50 ML MG IVPB ONE ×2 (10:26→11:14)
[2022-12-12] MEDS ORDERED: ONDANSETRON 4 MG/2 ML VIAL IVPUSH ONE ×2 (10:26→15:17)
[2022-12-12] MEDS ORDERED: morphine CARPU-JECT 4 MG/1 ML DISP.SYRIN IVPUSH ONE (10:26)
[2022-12-12] MEDS ORDERED: SODIUM CHLORIDE 0.9% 500 ML INFUS.BAG IV ONE ×2 (10:26→12:17)
[2022-12-12] MEDS ORDERED: ONDANSETRON 4 MG/2 ML VIAL ONE ×2 (11:14→15:28)
[2022-12-12 11:19] LABS: BASO % 0.9 % (0-2.0); HEMATOCRIT 42.4 % (35.4-49); HEMOGLOBIN 14.8 GM/dL (11.7-16.9); LYMPH % 17.5 % (8-40); MCH 28.8 pg (25.7-33.7); MCHC 34.9 g/dl (32.0-35.9); MEAN CELL VOLUME 82.5 fl (80-96); MEAN PLT VOLUME 8.8 fl (7.5-11.1); MONO % 7.4 % (3.8-10.2); NEUT % 74.2 % (42.8-82.8); PLATELET COUNT 223 10^3/uL (134-434); RBC 5.14 M/mm3 (4.00-5.60); RDW 13.8 % (11.9-15.9); WHITE BLOOD COUNT 8.9 K/mm3 (4.0-10.0)
[2022-12-12] MEDS ORDERED: morphine SULFATE 4 MG/ML VIAL ONE (11:19)
[2022-12-12 11:41] LABS: ALBUMIN 4.5 g/dl (3.4-5.0); CALCIUM 9.5 mg/dL (8.5-10.1)
[2022-12-12 11:42] LABS: BLOOD UREA NITROGEN 13.3 mg/dL (7-18)
[2022-12-12 11:44] LABS: CREATININE 0.9 mg/dL (0.55-1.3)
[2022-12-12 11:45] LABS: TOT PROT 7.8 g/dl (6.4-8.2)
[2022-12-12 11:46] LABS: BILIRUBIN,TOTAL 1.2 mg/dL (0.2-1)
== END 2022-12-12 16:04 | disposition home or self-care (01) ==
LOC: JERFT 08:48 → JER 08:48 → JERFT 16:04
PROC: 3E033GC Introduction of Other Therapeutic Substance into Peripheral Vein, Percutaneous Approach (ICD-10-PCS; principal; 2022-12-12)
PROC: 3E033GC Introduction of Other Therapeutic Substance into Peripheral Vein, Percutaneous Approach (ICD-10-PCS; 2022-12-12)
PROC: 3E033GC Introduction of Other Therapeutic Substance into Peripheral Vein, Percutaneous Approach (ICD-10-PCS; 2022-12-12)
PROC: 3E033GC Introduction of Other Therapeutic Substance into Peripheral Vein, Percutaneous Approach (ICD-10-PCS; 2022-12-12)
DX: R10.12 Left upper quadrant pain (principal); R10.13 Epigastric pain; R11.2 Nausea with vomiting, unspecified
CPT/HCPCS: 36415; 74177-TC; 80053; 83690; 85025; 99285-25; Q9967

== ENCOUNTER 2022-12-17 08:58 | Emergency (ER) | payer OTHER ==
[2022-12-17 09:05] VITALS: BP 128/81; PULSE 109; RESP 18; TEMP 98.1; BMI 19.2
[2022-12-17] MEDS ORDERED: ACETAMINOPHEN 1000 MG/100 ML BAG IVPB ONE (09:19)
[2022-12-17] MEDS ORDERED: FAMOTIDINE 20 MG/50 ML IVPB 20 MG/50 ML MG IVPB ONE ×2 (09:19→09:50)
[2022-12-17] MEDS ORDERED: MAG HYDROX/AL HYDROX/SIMETH 30 ML UNIT-DOSE CUP PO ONE (09:19)
[2022-12-17] MEDS ORDERED: LACTATED RINGERS SOLUTION 1000 ML INFUS.BAG IV ONE (09:19)
[2022-12-17] MEDS ORDERED: ONDANSETRON 4 MG/2 ML VIAL IVPUSH ONE (09:19)
[2022-12-17] MEDS ORDERED: morphine CARPU-JECT 2 MG/1 ML DISP.SYRIN IVPUSH ONE (09:44)
[2022-12-17] MEDS ORDERED: ONDANSETRON 4 MG/2 ML VIAL ONE (09:50)
[2022-12-17] MEDS ORDERED: MAG HYDROX/AL HYDROX/SIMETH 30 ML UNIT-DOSE CUP ONE (09:50)
[2022-12-17] MEDS ORDERED: ACETAMINOPHEN INJECTION 100 ML IVPB ONE (09:50)
[2022-12-17 10:19] LABS: BASO % 0.5 % (0-2.0); EOS % 0.1 % (0-4.5); HEMATOCRIT 46.1 % (35.4-49); HEMOGLOBIN 15.8 GM/dL (11.7-16.9); LYMPH % 13.9 % (8-40); MCH 28.1 pg (25.7-33.7); MCHC 34.2 g/dl (32.0-35.9); MEAN CELL VOLUME 82.3 fl (80-96); MEAN PLT VOLUME 9.1 fl (7.5-11.1); MONO % 6.9 % (3.8-10.2); NEUT % 78.6 % (42.8-82.8); PLATELET COUNT 264 10^3/uL (134-434); RDW 13.8 % (11.9-15.9); WHITE BLOOD COUNT 9.9 K/mm3 (4.0-10.0)
[2022-12-17 10:40] LABS: CALCIUM 10.1 mg/dL (8.5-10.1)
[2022-12-17 10:41] LABS: ALBUMIN 4.6 g/dl (3.4-5.0); BLOOD UREA NITROGEN 14.7 mg/dL (7-18)
[2022-12-17 10:44] LABS: CREATININE 1.1 mg/dL (0.55-1.3)
[2022-12-17 10:46] LABS: BILIRUBIN,TOTAL 1.2 mg/dL (0.2-1); TOT PROT 7.9 g/dl (6.4-8.2)
[2022-12-17] MEDS ORDERED: SODIUM CHLORIDE 0.9% 500 ML INFUS.BAG IV ONE (13:08)
== END 2022-12-17 15:28 | disposition home or self-care (01) ==
LOC: JER 08:58
PROC: 3E033GC Introduction of Other Therapeutic Substance into Peripheral Vein, Percutaneous Approach (ICD-10-PCS; principal; 2022-12-17)
PROC: 3E033GC Introduction of Other Therapeutic Substance into Peripheral Vein, Percutaneous Approach (ICD-10-PCS; 2022-12-17)
PROC: 3E033GC Introduction of Other Therapeutic Substance into Peripheral Vein, Percutaneous Approach (ICD-10-PCS; 2022-12-17)
PROC: 3E033GC Introduction of Other Therapeutic Substance into Peripheral Vein, Percutaneous Approach (ICD-10-PCS; 2022-12-17)
DX: R10.9 Unspecified abdominal pain (principal); R11.2 Nausea with vomiting, unspecified; Z20.822 Contact with and (suspected) exposure to COVID-19
CPT/HCPCS: 36415; 74019-TC-FY; 80053; 85025; 93005; 93010; 99285-25; C9803-CS; U0003; U0005

== ENCOUNTER 2022-12-20 08:57 | Inpatient (IN) | payer OTHER ==
[2022-12-20 09:29] VITALS: BMI 19.0
[2022-12-20] MEDS ORDERED: ACETAMINOPHEN 1000 MG/100 ML BAG IVPB ONE (09:52)
[2022-12-20] MEDS ORDERED: FAMOTIDINE 20 MG/50 ML IVPB 20 MG/50 ML MG IVPB ONE (09:53)
[2022-12-20] MEDS ORDERED: LACTATED RINGERS SOLUTION 1000 ML INFUS.BAG IV ONE (09:53)
[2022-12-20] MEDS ORDERED: ONDANSETRON 4 MG/2 ML VIAL IVPUSH ONE (09:53)
[2022-12-20] MEDS ORDERED: METOCLOPRAMIDE HCL INJECTION 10 MG/2 ML VIAL ONE (10:00)
[2022-12-20] MEDS ORDERED: FAMOTIDINE 10 MG/ML VIAL IVPB ONE (10:00)
[2022-12-20] MEDS ORDERED: ACETAMINOPHEN INJECTION 100 ML IVPB ONE (10:00)
[2022-12-20] MEDS ORDERED: ONDANSETRON 4 MG/2 ML VIAL ONE (10:04)
[2022-12-20 10:49] LABS: BASO % 0.6 % (0-2.0); EOS % 0.1 % (0-4.5); HEMATOCRIT 43.5 % (35.4-49); HEMOGLOBIN 14.9 GM/dL (11.7-16.9); MCH 28.5 pg (25.7-33.7); MCHC 34.4 g/dl (32.0-35.9); MEAN CELL VOLUME 82.9 fl (80-96); MEAN PLT VOLUME 9.5 fl (7.5-11.1); NEUT % 65.3 % (42.8-82.8); PLATELET COUNT 238 10^3/uL (134-434); RBC 5.25 M/mm3 (4.00-5.60); RDW 13.4 % (11.9-15.9); WHITE BLOOD COUNT 7.6 K/mm3 (4.0-10.0)
[2022-12-20 11:06] LABS: POTASSIUM 3.7 mmol/L (3.5-5.1)
[2022-12-20 11:07] LABS: ALBUMIN 4.5 g/dl (3.4-5.0); CALCIUM 10.2 mg/dL (8.5-10.1); MAGNESIUM 2.4 mg/dL (1.8-2.4)
[2022-12-20 11:12] LABS: BILIRUBIN,TOTAL 1.3 mg/dL (0.2-1); TOT PROT 7.3 g/dl (6.4-8.2)
[2022-12-20] MEDS ORDERED: TRIMETHOBENZAMIDE HCL 200MG/2ML INJ IM ONE ×2 (12:39→12:40)
[2022-12-20] MEDS ORDERED: SIMETHICONE 40 MG/0.6 ML BOTTLE PO ONE (12:41)
[2022-12-20] MEDS ORDERED: SIMETHICONE 80 MG TAB.CHEW (FP) ONE (12:47)
[2022-12-20] MEDS ORDERED: morphine CARPU-JECT 2 MG/1 ML DISP.SYRIN IVPUSH ONE (13:00)
[2022-12-20] MEDS ORDERED: TRIMETHOBENZAMIDE HCL 200MG/2ML INJ IM PRN (13:13)
[2022-12-20] MEDS ORDERED: ACETAMINOPHEN 325 MG TABLET (FP) PO PRN (14:56)
[2022-12-20] MEDS ORDERED: ACETAMINOPHEN 1000 MG/100 ML BAG IVPB PRN (14:56)
[2022-12-20 15:35] LABS: PHOSPHOROUS 4.4 mg/dL (2.5-4.9)
[2022-12-20] MEDS: DEXTROSE 5%-NORMAL SALINE 1,000 ML IV SCH (15:51)
[2022-12-20] MEDS: METOCLOPRAMIDE HCL INJECTION 10 MG/2 ML VIAL IVPUSH PRN (15:51)
[2022-12-20 17:57] LABS: BILIRUBIN,DIRECT 0.4 mg/dL (0.0-0.2)
[2022-12-20 22:00] LABS: URINE BARBITURATES NEGATIVE (NEGATIVE)
[2022-12-20 22:01] LABS: COCAINE, UR NEGATIVE (NEGATIVE); METHADONE, UR NEGATIVE (NEGATIVE); PHENCYCLIDINE,URINE NEGATIVE (NEGATIVE)
[2022-12-20 22:04] LABS: OPIATES, URI POSITIVE (NEGATIVE); URINE AMPHETAMINES NEGATIVE (NEGATIVE); URINE BENZODIAZEPINES NEGATIVE (NEGATIVE)
[2022-12-20] MEDS: PANTOPRAZOLE SODIUM 40 MG VIAL IVPUSH SCH (23:21)
[2022-12-21] MEDS: DEXTROSE 5%-NORMAL SALINE 1,000 ML IV SCH ×2 (02:42→16:44)
[2022-12-21] MEDS: METOCLOPRAMIDE HCL INJECTION 10 MG/2 ML VIAL IVPUSH PRN (07:07)
[2022-12-21] MEDS: PANTOPRAZOLE SODIUM 40 MG VIAL IVPUSH SCH (09:32)
[2022-12-21 10:51] LABS: BASO % 0.3 % (0-2.0); EOS % 0.2 % (0-4.5); HEMATOCRIT 39.6 % (35.4-49); HEMOGLOBIN 13.6 GM/dL (11.7-16.9); LYMPH % 18.7 % (8-40); MCH 28.1 pg (25.7-33.7); MCHC 34.3 g/dl (32.0-35.9); MEAN CELL VOLUME 81.7 fl (80-96); MEAN PLT VOLUME 9.2 fl (7.5-11.1); MONO % 7.3 % (3.8-10.2); NEUT % 73.5 % (42.8-82.8); PLATELET COUNT 206 10^3/uL (134-434); RBC 4.84 M/mm3 (4.00-5.60); RDW 13.6 % (11.9-15.9); WHITE BLOOD COUNT 6.5 K/mm3 (4.0-10.0)
[2022-12-21 11:05] LABS: CHLORIDE 97 mmol/L (98-107); SODIUM 134 mmol/L (136-145)
[2022-12-21 11:10] LABS: ALBUMIN 3.9 g/dl (3.4-5.0); BLOOD UREA NITROGEN 6.3 mg/dL (7-18); CO2 28 mmol/L (21-32); GLUCOSE,RANDOM 87 mg/dL (74-106); MAGNESIUM 2.1 mg/dL (1.8-2.4)
[2022-12-21 11:12] LABS: CREATININE 0.7 mg/dL (0.55-1.3); PHOSPHOROUS 2.5 mg/dL (2.5-4.9); SGOT/AST 30 U/L (15-37); SGPT/ALT 24 U/L (13-61)
[2022-12-21 11:13] LABS: BILIRUBIN,TOTAL 1.2 mg/dL (0.2-1)
[2022-12-21 11:14] LABS: TOT PROT 6.2 g/dl (6.4-8.2)
[2022-12-21 11:16] LABS: ALK PHOS 32 U/L (45-117)
[2022-12-21 11:40] LABS: ANION GAP 9 MMOL/L (8-16); CALCIUM 8.6 mg/dL (8.5-10.1); POTASSIUM 2.8 mmol/L (3.5-5.1)
[2022-12-21] MEDS ORDERED: POTASSIUM CHLORIDE TABS 10 MEQ TABLET.ER (FP) PO ONE (12:00)
[2022-12-21] MEDS: KCL 10 MEQ IVPB 10 MEQ/100 ML INFUS.BAG IVPB SCH ×3 (12:44→16:41)
[2022-12-21] MEDS ORDERED: POTASSIUM CHLORIDE ORAL LIQUID 20 MEQ/15 ML PO SCH (12:45)
[2022-12-21] MEDS: SUCRALFATE 1 GM TABLET (FP) PO SCH ×2 (13:42→17:47)
[2022-12-21 16:09] VITALS: RESP 16
[2022-12-21 16:24] VITALS: BP 149/83; PULSE 75; TEMP 97.4
[2022-12-22] MEDS ORDERED: ENOXAPARIN NA (PORCINE) 40 MG/0.4 ML DISP.SYRIN SQ SCH (10:00)
== END 2022-12-21 19:15 | disposition home or self-care (01) | DRG 392 ==
LOC: JERFT 08:57 → JER 08:57 → UNDOADMOB 13:11 → INTOOBSV 13:11 → JERBED 13:11 → OBSVTOIN 15:20 → J6S 23:10
PROVIDERS: ADMIT Internal Medicine; ATTEND Internal Medicine
PROC: 0DB68ZX Excision of Stomach, Via Natural or Artificial Opening Endoscopic, Diagnostic (ICD-10-PCS; 2022-12-21)
PROC: 0DB98ZX Excision of Duodenum, Via Natural or Artificial Opening Endoscopic, Diagnostic (ICD-10-PCS; principal; 2022-12-21 11:30)
DX: K29.60 Other gastritis without bleeding (principal); Z68.1 Body mass index [BMI] 19.9 or less, adult; E78.5 Hyperlipidemia, unspecified; E83.52 Hypercalcemia; R10.84 Generalized abdominal pain; R63.4 Abnormal weight loss; E87.6 Hypokalemia; E86.0 Dehydration
CPT/HCPCS: 36415; 71045-TC-FY; 74019-TC-FY; 74177-TC; 80053; 80307; 82248; 82306; 82607; 83516; 83690; 83735; 83970; 84100; 84443; 84484; 85025; 88305-TC; 88342-TC; 93005; 93010; 99285-25; C9803-CS; G0378; Q9967; U0003; U0005

== ENCOUNTER 2023-10-21 11:59 | Emergency (ER) | payer OTHER ==
[2023-10-21 12:32] VITALS: BP 144/98; PULSE 103; RESP 18; TEMP 98.3
[2023-10-21 12:34] VITALS: BMI 19.8
[2023-10-21] MEDS ORDERED: FAMOTIDINE 20 MG/50 ML IVPB 20 MG/50 ML MG IVPB ONE (14:36)
[2023-10-21] MEDS ORDERED: MAG HYDROX/AL HYDROX/SIMETH 30 ML UNIT-DOSE CUP ONE (14:36)
[2023-10-21] MEDS ORDERED: ONDANSETRON 4 MG/2 ML VIAL ONE (14:49)
[2023-10-21] MEDS: FAMOTIDINE 20 MG/50 ML IVPB 20 MG/50 ML MG IVPB ONE (14:54)
[2023-10-21] MEDS: ONDANSETRON 4 MG/2 ML VIAL IVPUSH ONE (14:54)
[2023-10-21] MEDS: SODIUM CHLORIDE 0.9% 500 ML INFUS.BAG IV ONE (14:54)
[2023-10-21] MEDS: MAG HYDROX/AL HYDROX/SIMETH 30 ML UNIT-DOSE CUP PO ONE (14:54)
[2023-10-21 15:05] LABS: BASO % 0.6 % (0-2.0); EOS % 0.2 % (0-4.5); HEMATOCRIT 48.9 % (35.4-49); HEMOGLOBIN 16.1 GM/dL (11.7-16.9); LYMPH % 15.7 % (8-40); MCH 28.3 pg (25.7-33.7); MCHC 32.9 g/dl (32.0-35.9); MEAN CELL VOLUME 85.9 fl (80-96); MEAN PLT VOLUME 8.5 fl (7.5-11.1); MONO % 8.4 % (3.8-10.2); NEUT % 75.1 % (42.8-82.8); PLATELET COUNT 328 10^3/uL (134-434); RBC 5.69 M/mm3 (4.00-5.60); RDW 14.1 % (11.9-15.9); WHITE BLOOD COUNT 14.2 K/mm3 (4.0-10.0)
[2023-10-21 15:28] LABS: CALCIUM 10.5 mg/dL (8.5-10.1)
[2023-10-21 15:29] LABS: ALBUMIN 4.6 g/dl (3.4-5.0); BLOOD UREA NITROGEN 33.4 mg/dL (7-18)
[2023-10-21 15:32] LABS: CREATININE 1.2 mg/dL (0.55-1.3)
[2023-10-21 15:34] LABS: BILIRUBIN,TOTAL 1.4 mg/dL (0.2-1); TOT PROT 8.6 g/dl (6.4-8.2)
== END 2023-10-21 18:57 | disposition home or self-care (01) ==
LOC: JER 11:59
PROC: 3E033GC Introduction of Other Therapeutic Substance into Peripheral Vein, Percutaneous Approach (ICD-10-PCS; principal; 2023-10-21)
PROC: 3E033GC Introduction of Other Therapeutic Substance into Peripheral Vein, Percutaneous Approach (ICD-10-PCS; 2023-10-21)
DX: R11.2 Nausea with vomiting, unspecified (principal); R10.13 Epigastric pain
CPT/HCPCS: 36415; 74176-TC; 80053; 83690; 85025; 99284-25

== ENCOUNTER 2024-01-09 14:14 | Emergency (ER) | payer OTHER ==
[2024-01-09 14:37] VITALS: BP 131/93; PULSE 63; RESP 18; TEMP 97.9; BMI 21.7
[2024-01-09] MEDS ORDERED: FAMOTIDINE 20 MG/50 ML IVPB 20 MG/50 ML MG IVPB ONE ×3 (15:02→15:44)
[2024-01-09] MEDS ORDERED: ACETAMINOPHEN INJECTION 100 ML IVPB ONE (15:07)
[2024-01-09] MEDS ORDERED: ONDANSETRON 4 MG/2 ML VIAL ONE ×2 (15:07→19:15)
[2024-01-09] MEDS: SODIUM CHLORIDE 0.9% 500 ML INFUS.BAG IV ONE ×2 (15:27→16:28)
[2024-01-09] MEDS: ACETAMINOPHEN 1000 MG/100 ML BAG IVPB ONE (15:27)
[2024-01-09] MEDS: ONDANSETRON 4 MG/2 ML VIAL IVPUSH ONE ×2 (15:27→19:14)
[2024-01-09] MEDS ORDERED: HALOPERIDOL LACTATE 5 MG/ML ONE (15:33)
[2024-01-09] MEDS: HALOPERIDOL LACTATE 5 MG/ML IVPUSH ONE (15:41)
[2024-01-09 15:47] LABS: BASO % 0.6 % (0-2.0); HEMATOCRIT 52.9 % (35.4-49); HEMOGLOBIN 17.9 GM/dL (11.7-16.9); LYMPH % 8.1 % (8-40); MCH 28.7 pg (25.7-33.7); MCHC 33.9 g/dl (32.0-35.9); MEAN CELL VOLUME 84.7 fl (80-96); MEAN PLT VOLUME 9.4 fl (7.5-11.1); NEUT % 83.3 % (42.8-82.8); PLATELET COUNT 250 10^3/uL (134-434); RBC 6.24 M/mm3 (4.00-5.60); RDW 13.4 % (11.9-15.9); WHITE BLOOD COUNT 16.7 K/mm3 (4.0-10.0)
[2024-01-09 17:23] LABS: POTASSIUM 3.8 mmol/L (3.5-5.1)
[2024-01-09 17:26] LABS: CALCIUM 9.5 mg/dL (8.5-10.1); MAGNESIUM 2.6 mg/dL (1.8-2.4)
[2024-01-09 17:27] LABS: BLOOD UREA NITROGEN 55.8 mg/dL (7-18)
[2024-01-09 17:29] LABS: CREATININE 1.8 mg/dL (0.55-1.3)
[2024-01-09 17:31] LABS: BILIRUBIN,TOTAL 1.1 mg/dL (0.2-1); TOT PROT 9.2 g/dl (6.4-8.2)
[2024-01-09 18:33] LABS: BASO % 0.6 % (0-2.0); EOS % 0.2 % (0-4.5); HEMATOCRIT 46.3 % (35.4-49); HEMOGLOBIN 15.2 GM/dL (11.7-16.9); LYMPH % 12.6 % (8-40); MCH 28.2 pg (25.7-33.7); MCHC 32.8 g/dl (32.0-35.9); MEAN PLT VOLUME 9.1 fl (7.5-11.1); MONO % 9.2 % (3.8-10.2); NEUT % 77.4 % (42.8-82.8); PLATELET COUNT 199 10^3/uL (134-434); RBC 5.38 M/mm3 (4.00-5.60); RDW 13.3 % (11.9-15.9); WHITE BLOOD COUNT 13.8 K/mm3 (4.0-10.0)
[2024-01-09 18:52] LABS: POTASSIUM 4.7 mmol/L (3.5-5.1)
[2024-01-09 18:54] LABS: BLOOD UREA NITROGEN 42.9 mg/dL (7-18)
[2024-01-09 18:57] LABS: CREATININE 1.5 mg/dL (0.55-1.3)
[2024-01-09 18:59] LABS: BILIRUBIN,TOTAL 0.9 mg/dL (0.2-1); TOT PROT 7.3 g/dl (6.4-8.2)
[2024-01-09 19:37] LABS: ALBUMIN 3.7 g/dl (3.4-5.0); CALCIUM 7.8 mg/dL (8.5-10.1)
[2024-01-09 22:07] LABS: INR 0.96 (0.83-1.09); PROTHROMBIN TIME (PATIENT) 10.9 SEC (9.7-13.0)
[2024-01-09 22:10] LABS: ACTIVATED PTT 31.8 SECONDS (25.2-36.5)
== END 2024-01-09 19:57 | disposition home or self-care (01) ==
LOC: JER 14:14
PROC: 3E030NZ Introduction of Analgesics, Hypnotics, Sedatives into Peripheral Vein, Open Approach (ICD-10-PCS; principal; 2024-01-09)
PROC: 3E030GC Introduction of Other Therapeutic Substance into Peripheral Vein, Open Approach (ICD-10-PCS; 2024-01-09)
PROC: 3E030GC Introduction of Other Therapeutic Substance into Peripheral Vein, Open Approach (ICD-10-PCS; 2024-01-09)
PROC: 3E030GC Introduction of Other Therapeutic Substance into Peripheral Vein, Open Approach (ICD-10-PCS; 2024-01-09)
PROC: 3E030GC Introduction of Other Therapeutic Substance into Peripheral Vein, Open Approach (ICD-10-PCS; 2024-01-09)
DX: R11.2 Nausea with vomiting, unspecified (principal); R10.84 Generalized abdominal pain; R19.7 Diarrhea, unspecified; R09.81 Nasal congestion; R53.83 Other fatigue; R68.83 Chills (without fever); Z20.822 Contact with and (suspected) exposure to COVID-19
CPT/HCPCS: 0241U-QW; 36415; 80053; 83690; 83735; 85025; 85610; 85730; 99284-25; J0131

== ENCOUNTER 2024-03-18 14:01 | Emergency (ER) | payer OTHER ==
[2024-03-18 14:15] VITALS: BP 140/90; PULSE 112; RESP 20; TEMP 97.7; BMI 20.9
[2024-03-18] MEDS ORDERED: FAMOTIDINE 20 MG/50 ML IVPB 20 MG/50 ML MG IVPB ONE (17:01)
[2024-03-18] MEDS ORDERED: TRIMETHOBENZAMIDE HCL 200MG/2ML INJ IM ONE (17:01)
[2024-03-18] MEDS ORDERED: MAG HYDROX/AL HYDROX/SIMETH 30 ML UNIT-DOSE CUP ONE (17:01)
[2024-03-18] MEDS ORDERED: ACETAMINOPHEN INJECTION 100 ML IVPB ONE (17:01)
[2024-03-18] MEDS: LACTATED RINGERS SOLUTION 1000 ML INFUS.BAG IV ONE (17:27)
[2024-03-18] MEDS: MAG HYDROX/AL HYDROX/SIMETH 30 ML UNIT-DOSE CUP PO ONE (17:27)
[2024-03-18] MEDS: FAMOTIDINE 20 MG/50 ML IVPB 20 MG/50 ML MG IVPB ONE (17:28)
[2024-03-18] MEDS: ACETAMINOPHEN 1000 MG/100 ML BAG IVPB ONE (17:28)
[2024-03-18] MEDS: TRIMETHOBENZAMIDE HCL 200MG/2ML INJ IM ONE (17:28)
[2024-03-18 18:03] LABS: BASO % 0.7 % (0-2.0); HEMATOCRIT 48.3 % (35.4-49); HEMOGLOBIN 16.2 GM/dL (11.7-16.9); LYMPH % 9.8 % (8-40); MCH 27.8 pg (25.7-33.7); MCHC 33.5 g/dl (32.0-35.9); MEAN CELL VOLUME 82.8 fl (80-96); MEAN PLT VOLUME 9.3 fl (7.5-11.1); NEUT % 84.5 % (42.8-82.8); PLATELET COUNT 305 10^3/uL (134-434); RBC 5.84 M/mm3 (4.00-5.60); RDW 14.4 % (11.9-15.9); WHITE BLOOD COUNT 11.8 K/mm3 (4.0-10.0)
[2024-03-18 18:21] LABS: POTASSIUM 3.4 mmol/L (3.5-5.1)
[2024-03-18 18:24] LABS: ALBUMIN 4.6 g/dl (3.4-5.0); CALCIUM 10.4 mg/dL (8.5-10.1)
[2024-03-18 18:25] LABS: BLOOD UREA NITROGEN 17.5 mg/dL (7-18); MAGNESIUM 2.5 mg/dL (1.8-2.4)
[2024-03-18 18:27] LABS: CREATININE 1.2 mg/dL (0.55-1.3); PHOSPHOROUS 4.1 mg/dL (2.5-4.9)
[2024-03-18 18:29] LABS: TOT PROT 8.4 g/dl (6.4-8.2)
[2024-03-18] MEDS ORDERED: SUCRALFATE 1 GM TABLET (FP) ONE (18:44)
[2024-03-18] MEDS: SUCRALFATE 1 GM/10 ML UNIT DOSE CUPS PO ONE (18:47)
== END 2024-03-18 20:46 | disposition home or self-care (01) ==
LOC: JER 14:01
PROC: 3E033GC Introduction of Other Therapeutic Substance into Peripheral Vein, Percutaneous Approach (ICD-10-PCS; principal; 2024-03-18)
PROC: 3E033NZ Introduction of Analgesics, Hypnotics, Sedatives into Peripheral Vein, Percutaneous Approach (ICD-10-PCS; 2024-03-18)
PROC: 3E023GC Introduction of Other Therapeutic Substance into Muscle, Percutaneous Approach (ICD-10-PCS; 2024-03-18)
DX: R11.2 Nausea with vomiting, unspecified (principal); R07.9 Chest pain, unspecified; R10.84 Generalized abdominal pain; R63.4 Abnormal weight loss; R19.7 Diarrhea, unspecified
CPT/HCPCS: 36415; 71046-TC-FY; 74177-TC; 80053; 83690; 83735; 84100; 84484; 85025; 93005; 93010; 99285-25; J0131